=== PATIENT | male | born 1990 | race Caucasian/White ===

== ENCOUNTER 2017-09-25 20:42 | Emergency (ER) | payer SELFPAY ==
[~2017-09-25] VITALS: Ht 180.3 cm; Wt 86.2 kg
[2017-09-25 20:51] VITALS: BP 119/68
[2017-09-25] MEDS ORDERED: SODIUM CHLORIDE 0.9% 500 ML IV ONE (21:15)
[2017-09-25] MEDS ORDERED: TETANUS-DIPTH-ACEL PERTUSSIS 0.5ML SYRG IM ONE (21:15)
[2017-09-25] MEDS ORDERED: NEOMYCIN-BACITRACIN-POLYM UNITDOSE PKG TOP OINT TOP ONE ×2 (21:15→23:04)
[2017-09-25] MEDS ORDERED: LIDOCAINE W/ EPINEPHRINE 2% INJ 20ML VIAL ID ONE (21:15)
[2017-09-25] MEDS ORDERED: ceFAZolin 1GM/50ML 100 ML IV ONE (21:15)
== END 2017-09-26 00:25 | disposition home or self-care (01) ==
LOC: ER 20:42
DX: S51.811A Laceration without foreign body of right forearm, initial encounter (principal); W00.0XXA Fall on same level due to ice and snow, initial encounter; Y93.89 Activity, other specified; Y99.8 Other external cause status; Y92.89 Other specified places as the place of occurrence of the external cause
CPT/HCPCS: 12035; 90471; 90715; 96365; 99284; J0690; J7040; 12005

== ENCOUNTER 2017-10-05 17:00 | Emergency (ER) | payer MEDICAID ==
[~2017-10-05] VITALS: Ht 180.3 cm; Wt 81.6 kg
[2017-10-05 17:34] VITALS: BP 99/63
== END 2017-10-06 01:26 | disposition left against medical advice (07) ==
LOC: ER 17:02
DX: R07.9 Chest pain, unspecified (principal); R06.02 Shortness of breath; Z53.21 Procedure and treatment not carried out due to patient leaving prior to being seen by health care provider
CPT/HCPCS: 93005